=== PATIENT | female | born 1995 | race Caucasian/White ===

== ENCOUNTER 2017-04-03 10:01 | Emergency (ER) | payer OTHER ==
[2017-04-03 11:27] VITALS: BP 134/78
[2017-04-03] MEDS ORDERED: Tetan/Diph/Pertus SYR(Tdap)* 0.5 ML SYR(BOOSTRIX) use SYR IM ONE (12:20)
[2017-04-03] MEDS ORDERED: Acetaminophen TAB* 325 MG PO ONE (12:20)
--- NOTE | 2017-04-03 13:15 | RAD ---
Puncture wound in the left proximal region. Single lateral view of the pelvis demonstrates no evidence of radiopaque foreign body. IMPRESSION: No radiopaque foreign body is identified.
[2017-04-03] MEDS ORDERED: Amoxicillin/Clavulanate TAB* 875 MG PO ONE (15:18)
--- NOTE | 2017-04-03 15:18 | ED ---
Skin Complaint - HPI Summary HPI Summary: Pt here w/ Lt buttock lac - happened last night - fell back onto bottom and did not have pain but noticed a tear in her pants and quarter-sized area of blood on underwear/pants when going to the bathroom later that night. Looked at buttock this morning and noticed a laceration - cleaned with H202 and applied triple antibiotic ointment. Unsure of last tetanus vaccine? No pain unless she touches the area. No drainage, bleeding. - History of Current Complaint Chief Complaint: EDLacSutureRecheck Time Seen by Provider: 04/03/17 10:45 Stated Complaint: LAC ON BUTTOCKS Hx Last Menstrual Period: 08/10/16 Pain Intensity: 0 - Allergy/Home Medications Allergies/Adverse Reactions: Allergies Allergy/AdvReac Type Severity Reaction Status Date / Time No Known Allergies Allergy Verified 04/03/17 10:02 PMH/Surg Hx/FS Hx/Imm Hx Musculoskeletal History: Denies: Hx Rheumatoid Arthritis, Hx Osteoporosis - Surgical History Surgery Procedure, Year, and Place: foot surgery Infectious Disease History: No Infectious Disease History: Denies: Traveled Outside the [place] in Last 30 Days - Family History Known Family History: Positive: Cardiac Disease Negative: Hypertension - Social History Alcohol Use: None Hx Substance Use: No Substance Use Type: Reports: None Hx Tobacco Use: No Smoking Status (MU): Former Smoker Physical Exam Vital Signs On Initial Exam: Initial Vitals Temp Pulse Resp BP Pulse Ox 97.8 F 84 18 131/78 98 04/03/17 10:03 04/03/17 10:03 04/03/17 10:03 04/03/17 10:03 04/03/17 10:03 Procedures - Laceration/Wound Repair 1 Location: Other - Lt buttock Description: Stellate Anesthesia: Local, 2.0%, Lido, Epi Length, Depth and Shape: 3cm x 1cm Betadine Prep?: Yes Irrigated w/ Saline (ccs): 300 - hibaclens and sterile saline irrigation Laceration/Wound Explored: foreign body removed - 2 small pieces of black thread (pt was wearing black underwear at time of injury) Closure: Multilayer Suture Type: Nylon - 5-0, Chromic - 5-0 Number of Sutures: 9 - 2 deep absorbable, 7 simple interrupted non-absorbable Layer Closure?: Yes Sterile Dressing Applied?: No - triple anbx + gauze dressing Diagnostics - Vital Signs Vital Signs Temp Pulse Resp BP Pulse Ox 04/03/17 11:23 97.8 F 84 18 134/78 99 04/03/17 10:03 97.8 F 84 18 131/78 98 - Laboratory Lab Statement: Any lab studies that have been ordered have been reviewed, and results considered in the medical decision making process. Course/Dx - Diagnoses Provider Diagnoses: Laceration of left buttock Discharge - Discharge Plan Condition: Stable Disposition: HOME Prescriptions: Amoxicillin/Clavulanate TAB* [Augmentin TAB 875*] 875 mg PO BID #19 tab Patient Education Materials: Care For Your Stitches (ED), Laceration (ED) Forms: *Work Release Referrals: Desmond Munoz MD [Primary Care Provider] - Additional Instructions: Keep dressing clean, dry and intact for 48 hours - after this time, you may remove dressing - gently wash with soap and water - rinse well and pat dry with clean cloth then reapply triple antibiotic ointment and redress with clean gauze /bandaid. Avoid sitting, squatting to prevent rupturing sutures and wound. You may use ice and take acetaminophen for pain as needed. Complete antibiotics. Follow-up with PCP in 10 days for wound check and suture removal. *If you develop redness, swelling, purulent drainage, fever, chills, return to ED
== END 2017-04-03 15:35 | disposition home or self-care (01) ==
LOC: ED 10:01
DX: S31.821A Laceration without foreign body of left buttock, initial encounter (principal); W19.XXXA Unspecified fall, initial encounter; Y93.9 Activity, unspecified; Y92.9 Unspecified place or not applicable
CPT/HCPCS: 12002; 72170; 90715; 96372; 99282; A9270-GY

== ENCOUNTER 2018-05-25 23:46 | Inpatient (IN) | payer BC, MEDICAID ==
[2018-05-26] MEDS ORDERED: RHO D Immune Globulin (HUMAN)* 300 MCG = 1,500 I.U. INJ IM ONE (01:43)
[2018-05-26] MEDS ORDERED: Glycerin ADULT SUPP PR PRN (01:43)
[2018-05-26] MEDS ORDERED: Dibucaine 1% 28.35 GM TUBE PR PRN (01:43)
--- NOTE | 2018-05-26 01:53 | HP ---
General Information - Reason for Visit labor - General Information Maternal Age: 23 Grav: 1 Para: 0 SAB: 0 IEA: 0 Estimated Due Date: 05/28/18 Determined By: LMP Gestational Age in Weeks/Days: 39-57 Maternal Blood Type and Rh: A Negative - Results this Serology/RPR Result: Non-Reactive Rubella Result: Immune HBsAg Result: Negative HIV Result: Negative GBS Culture Result: Negative Past Medical History Delivery History: See Records Delivery History Comment: Primip Pertinent Past Medical History: See Records Past Medical History Comment: H/O Depression/anxiety. No current medications. Self d/c'd 03/2017 Environmental allergies Pertinent Past Surgical History: See Records Past Surgical History Comment: 2006 Thorn removal from left foot Pertinent Family History: Non-Contributory - Antepartal Records Antepartal Records: Reviewed, Complicated by: - Umbilical cysts diagnosed on sono. MFM consult: weekly NST/MARITZA after 32 weeks and Q 3-4 week growth sonos. LGSIL Pap 10/2017. Rh negative Review of Systems Constitutional: Uncomfortable CV Complaint: No Respiratory: Shortness of Breath: No Gastrointestinal: No Nausea/Vomiting, Normal Bowel Movement Genitourinary: Bleeding, Leaking Fluid, No Dysuria Musculoskeletal: Back Pain, Contractions, Pressure Neurological: No Headache, No Visual Changes Movement: Normal Exam Allergies/Adverse Reactions: Allergies ibuprofen Allergy (Verified 05/09/18 19:05) Nausea And Vomiting mometasone furoate [From Nasonex] Allergy (Verified 05/09/18 19:06) See Comment sinus swelling BP 119/72 HR 76 RR 22 SpO2 100% Lab Values - Entire Visit: Laboratory Tests 05/25/18 23:54 Vag Amniotic Fld Detect Negative - Measurements Height: 4 ft 11.5 in Weight: 134 lb Body Mass Index (BMI): 26.6 Pre- Weight: 115 lb - Exam Breast: Breast Exam Deferred CVA: No CVA Tenderness Extremities: No Edema Heart: Normal Rhythm/Heart Sounds HEENT: No Significant Findings Lungs: Clear Bilaterally Rectal: Rectal Exam Deferred Reflexes: DTR 2+ Thyroid: No Thyromegaly - Abdominal Exam Abdomen Exam: Non-Tender - Ultrasound/Biophysical Profile Ultrasound Status: Not Done Targeted Exam Findings See L&D Outpatient Visit Provider Note for Findings: N/A Estimated Weight: 6.5 lbs Cervical Exam: Complete Effacement: 100% Station: +3 Presenting Part: Vertex Membrane Status: SROM Amniotic Fluid Evaluation: Clear Sterile Speculum Exam: not done Bleeding/Discharge: Bloody Show EFM Findings - External Monitor Findings Baseline Heart Rate: 125 External Monitor Findings: Accelerations Present, Variability Moderate, Baseline Stable, Variable or Late Deceleration Pattern Present - variables with pushing External Monitor Findings Comment: Category II FHT with pushing. Moderate variability maintained Contractions: Regular, Strong, 45-90 Seconds, >90 Seconds Contraction Frequency: q 2-3 minutes Assessment/Plan - Assessment IUP at 39-5/7 in active labor, delivery imminent - Plan Plan: Admit - Anticipate Vaginal Delivery - Date/Time of Admission Date of Admission: 05/26/18 Time of Admission: 00:40
--- NOTE | 2018-05-26 02:01 | PROCNOTE ---
[facility] OB: Delivery Note - Delivery A Date of : 05/26/18 Time of : 01:21 Camas Sex: Male Weight at : 6 lb 6 oz Score 1 Minute: 8 Score 5 Minutes: 9 Gestational Age in Weeks and Days at Delivery: 39 Weeks and 5 Days Delivery Method: Spontaneous Vaginal Labor: Spontaneous Did Patient attempt ?: N/A, No Previous Amniotic Fluid: Clear Estimated Blood Loss: 250 Anesthesia/Analgesia: None Delivered By: Marcelle Ballesteros - Nursery Level of Nursery: Regular/Bedside - Perineum Perineal Injury: None/Intact Perineal Repair: None - Events Delivery Events of Note: None Apply - Additional Delivery Notes Additional Delivery Notes: Pt admitted in active labor after spontaneous rupture of membranes to clear fluid. Length of labor 2 hours, 27 min. Pushed x 18 min. liveborn male. Slow , controlled delivery of head. OA to TISHA. Loose nuchal cord x 1. somersaulted through after shoulders delivered with maternal push. vigorous with spontaneous cry. HR>110bpm. Delivered to maternal abdomen. Cord clamped x 2 and cut after pulsations ceased. Spontaneous delivery intact placenta. Membranes complete. Fundus firm to massage and remained firm. Unable to collect cord blood in presence of large umbilical cysts. Drawn from placental disc. Perineum intact. No repair needed as above. EBL 250mL. At time of note mother and in stable condition. Planning to both breast and bottle feed.
[2018-05-26] MEDS: Acetaminophen TAB* 325 MG PO PRN ×5 (02:31→21:22)
[2018-05-26] MEDS: Docusate CAP* 100 MG PO SCH ×3 (07:40→21:23)
[2018-05-26] MEDS: Witch Hazel PAD* JAR TOPICAL PRN ×2 (07:53→17:29)
[2018-05-26] MEDS ORDERED: Simethicone TAB* 80 MG TAB.CHEW PO SCH (08:30)
[2018-05-27 07:05] LABS: ABS Basophils 0 10^3/ul (0-0.2); ABS Eosinophils 0.1 10^3/ul (0-0.6); ABS Lymphocytes 2.2 10^3/ul (1.0-4.8); ABS Monocytes 0.6 10^3/ul (0-0.8); ABS Neutrophils 5.3 10^3/ul (1.5-7.7); ABS Nucleated RBC 0 10^3/ul; Eosinophil % 0.9 % (0-6); Hematocrit 33 % (35-47); Hemoglobin 11.3 g/dl (12.0-16.0); Mean Corpuscular HGB Conc 34 g/dl (31-36); Mean Corpuscular Hemoglobin 31 pg (27-31); Mean Corpuscular Volume 91 fL (80-97); Mean Platelet Volume 9.1 um3 (7.4-10.4); Nucleated Red Blood Cells % 0.1; Platelet Count 145 10^3/ul (150-450); Red Blood Count 3.68 10^6/ul (4.00-5.40); Red Cell Distribution Width 15 % (10.5-15); White Blood Count 8.2 10^3/ul (3.5-10.8)
[2018-05-27] MEDS: Docusate CAP* 100 MG PO SCH ×3 (07:57→21:02)
[2018-05-27] MEDS: Acetaminophen TAB* 325 MG PO PRN ×2 (07:57→12:45)
[2018-05-27] MEDS ORDERED: Ferrous Gluconate TAB* 324 MG TAB PO SCH (09:00)
[2018-05-27] MEDS: oxyCODONE/Acetamin 5/325 MG* TAB PO PRN ×2 (16:30→21:02)
[2018-05-28] MEDS: oxyCODONE/Acetamin 5/325 MG* TAB PO PRN ×2 (01:42→08:32)
[2018-05-28 08:27] VITALS: BP 107/68
[2018-05-28] MEDS: Docusate CAP* 100 MG PO SCH (08:53)
== END 2018-05-28 11:33 | disposition home or self-care (01) | DRG 560 ==
LOC: MCHOBOUT 23:46 → MCHOB 05-26 01:04
PROVIDERS: ADMIT Midwife; ATTEND Midwife
PROC: 10E0XZZ Delivery of Products of Conception, External Approach (ICD-10-PCS; principal; 2018-05-26)
PROC: 4A1HXCZ Monitoring of Products of Conception, Cardiac Rate, External Approach (ICD-10-PCS; 2018-05-26)
DX: O69.1XX0 Labor and delivery complicated by cord around neck, with compression, not applicable or unspecified (principal); O76 Abnormality in fetal heart rate and rhythm complicating labor and delivery; O69.89X0 Labor and delivery complicated by other cord complications, not applicable or unspecified; Z88.8 Allergy status to other drugs, medicaments and biological substances; Z88.6 Allergy status to analgesic agent; Z3A.39 39 weeks gestation of pregnancy; Z37.0 Single live birth; Z67.11 Type A blood, Rh negative
CPT/HCPCS: 36415; 84112; 85025; 85461; 86900; 86901; 88307; A9270-GY; J2790

== ENCOUNTER 2019-03-16 18:17 | Emergency (ER) | payer MEDICAID ==
--- OUTSIDE RECORDS SUMMARY | 2019-03-16 18:23 | XMS REPORT | Continuity of Care Document ---
:1995 External Reference #:[id number] Author Name Demond Cross M.D. 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 Onset: 07/01/2015 Allergic rhinitis due to animals Demond Cross M.D. Onset: 07/01/2015 Mild persistent asthma Demond Cross M.D. Onset: 07/01/2015 Spasm Demond Cross M.D. Onset: 02/25/2015 Body Mass Index Between 19-24 Adult Demond Cross M.D. Onset: 02/25/2015 Allergic rhinitis Demond Cross M.D. Onset: 02/25/2015 Allergic asthma without status asthmaticus Demond Cross M.D. Onset: 2014 Family History Date Family Member(s) Observation Comments General Seasonal Allergies General Asthma General Food Allergy General Heart Disease Mother Seasonal Allergies Mother Food Allergy Mother Heart Disease First Sister Asthma Second Sister Food Allergy Social History Type Date Description Comments Sex Unknown Marital Status Legal Status: Never Lives With Boyfriend Lives With Son Home Environment Lives in an older 1st floor apartment Home Environment [place] Environment Uses electric heating Home Environment Does not have an air conditioner Home Environment Stairs are present Home Environment There is no basement Home Environment Cotton Comforter Home Environment Down Comforter Home Environment Mattress is 7 years old Home Environment Mattress is not encased in an allergy proof case Home Environment Regular Mattress Home Environment Pillows are polyester Home Environment Does not use a dehumidifier Home Environment There are no draperies in the home Home Environment The home is puja Home Environment The floors are carpeted Home Environment The floors are tile Home Environment Water Source: Well Home Environment Does not use air business objects Home Environment Pillows are not encased in an allergy proof case Smoke-Free Home is smoke-free Smoke-Free Work is smoke-free Pets None 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 250mcg/Blist Aerosol Ipratropium [place] 2 squirts each 1bottle J45.30 Demond Cross, 03/06/2019 nostril in the M.D. 0.03% Solution morning and at night Fluticasone 1 squirt each 1units Demond Cross, 02/25/2015 Propionate nostril daily M.D. 50mcg/Act Suspension Proair HFA two inhalations Unknown every 4 hours as 108(90Base) mcg/Act needed for cough, Aerosol wheezing or chest tightness Madelaine 28 Once daily Alexander, 3-0.03mg MD Desmond Tablets History Medications Ipratropium [place] 2 times a day 15ml Desmond Munoz, - 0.06% 03/06/2019 Solution Advair Diskus Twice a day Desmond Munoz, - 03/06/2019 250-50mcg/Dose Aerosol Immunizations CPT Code Status Date Vaccine Lot # 53340 Given Unknown Influenza Vaccine 72729 Given Unknown Influenza Vaccine 56093 Given Unknown Influenza Vaccine Vital Signs Date Vital Result Comment 03/06/2019 9:14am Height 60 inches 5'0" Weight 121.00 lb Weight 54.886 kg Respiratory Rate 16 /min Heart Rate 66 /min O2 % BldC Oximetry 97 % BP Systolic 98 mmHg BP Diastolic 55 mmHg Asthma Control Test 23 BMI (Body Mass Index) 23.6 kg/m2 07/01/2015 11:57am Height 60 inches 5'0" Weight 113.00 lb Weight 51.257 kg Respiratory Rate 20 /min Heart Rate 81 /min O2 % BldC Oximetry 98 % BP Systolic 96 mmHg BP Diastolic 57 mmHg Asthma Control Test 21 BMI (Body Mass Index) 22.1 kg/m2 03/25/2015 11:22am Height 60 inches 5'0" Weight 111.00 lb Weight 50.350 kg Respiratory Rate 18 /min Heart Rate 83 /min O2 % BldC Oximetry 98 % BP Systolic 97 mmHg BP Diastolic 50 mmHg Asthma Control Test 19 BMI (Body Mass Index) 21.7 kg/m2 02/25/2015 10:26am Height 60 inches 5'0" Weight 115.00 lb Weight 52.164 kg Respiratory Rate 16 /min Heart Rate 76 /min O2 % BldC Oximetry 98 % BP Systolic 110 mmHg BP Diastolic 70 mmHg Asthma Control Test 20 BMI (Body Mass Index) 22.5 kg/m2 Procedures Date Code Description Status 03/06/2019 72560 Pulmonary Function Test Completed 02/25/2015 99811 Skin Test Scratch # Of Units ____ Completed 02/25/2015 62293 Pulmonary Function Test Completed Encounters Type Date Location Provider Dx Diagnosis Office Visit 03/06/2019 Saundra Cross M.D. J45.30 Mild persistent asthma, 9:00a uncomplicated J30.81 Allergic rhinitis due to animal (cat) (dog) hair and dander Office Visit 07/01/2015 11:40a Saundra Cross M.D. J45.30 Mild persistent asthma, uncomplicated J30.81 Allergic rhinitis due to animal (cat) (dog) hair and dander Z68.22 Body mass index (BMI) 22.0-22.9, adult Office Visit 03/25/2015 11:20a Saundra Cross M.D. V85.1 Body Mass Index Between 19-24 Adult 493.00 Asthma Extrinsic Unspecified 477.8 Rhinitis Allergic Due To Other Allergen 728.85 Spasm Muscle Office Visit 02/25/2015 10:00a Saundra Cross M.D. 493.00 Asthma Extrinsic Unspecified 477.8 Rhinitis Allergic Due To Other Allergen V85.1 Body Mass Index Between 19-24 Adult 728.85 Spasm Muscle Plan of Treatment 03/06/2019 - Demond Cross M.D.J45.30 Mild persistent asthma, uncomplicatedNew Medication:Flovent Diskus 250 mcg/Blist - 1 twice a dayIpratropium [place] 0.03 % - 2 squirts each nostril in the morning and at nightFollow up:6-8 weeks for the discussion if possible to keep it with me either ok for her to see Lucie when I amhereRecommendations:PFT,was with in normal without any reversibility( discussed with her ) TO continue with the Advair at this time 1 inhalation every 12 hour Proair inhalation to be used as needed,2 puff every 4-6 hour stop the Advair and start the Flovent 250 mcg, 1 inhalation every 12 hourJ30.81 Allergic rhinitis due to animal (cat) (dog) hair and danderRecommendations:ok to continue with the Fluticasone and Ipratropium nasal spray at this point we did discuss the results of her skin testing from the past she had questions about the immunotherapy and considering it
--- NOTE | 2019-03-16 18:24 | UC ---
Hand/Wrist HPI - HPI Summary HPI Summary: 24 yo female presents with right 5th digit pain. She tells me that she works with her hands a lot at work and thinks she may have jammed it or twisted her finger at some point today, but does not recall a specific instance. Tonight she developed some swelling to the radial aspect of the PIP of her right 5th digit with tenderness at the site. She has not taken anything OTC for her discomfort or applied ice. Denies numbness or tingling. - History Of Current Complaint Stated Complaint: FINGER INJURY Time Seen by Provider: 03/16/19 18:24 Hx Obtained From: Patient Hx Last Menstrual Period: 08/10/16 Onset/Duration: Sudden Onset Severity Initially: Mild Severity Currently: Mild Pain Intensity: 3 Pain Scale Used: 0-10 Numeric - Allergies/Home Medications Allergies/Adverse Reactions: Allergies Allergy/AdvReac Type Severity Reaction Status Date / Time ibuprofen Allergy Nausea And Verified 03/16/19 18:26 Vomiting mometasone furoate Allergy See Comment Verified 03/16/19 18:26 [From Nasonex] Home Medications: Home Medications Ethinyl Estradiol/Drospirenone [Madelaine 28 3-0.03 mg] 1 tab PO DAILY 03/16/19 [ History Confirmed 03/16/19] Fluticasone-Salmeterol 100-50* [Advair Diskus 100-50*] 03/16/19 [History Confirmed 03/16/19] PMH/Surg Hx/FS Hx/Imm Hx Respiratory History: Asthma Other History Of: Negative For: Anticoagulant Therapy - Surgical History Surgery Procedure, Year, and Place: foot surgery - Family History Known Family History: Positive: Cardiac Disease Negative: Hypertension - Social History Occupation: Employed Full-time Lives: With Family Alcohol Use: None Substance Use Type: None Smoking Status (MU): Never Smoked Tobacco - Immunization History Most Recent Influenza Vaccination: Declined Most Recent Pneumonia Vaccination: n/a Review of Systems All Other Systems Reviewed And Are Negative: Yes Constitutional: Positive: Negative Skin: Positive: Negative Respiratory: Positive: Negative Cardiovascular: Positive: Negative Neurovascular: Positive: Negative Musculoskeletal: Positive: Other: - Right 5th finger pain Neurological: Positive: Negative Psychological: Positive: Negative Physical Exam - Summary Physical Exam Summary: GENERAL: NAD. WDWN. No pain distress. SKIN: No rashes, sores, lesions, or open wounds. CHEST: No accessory muscle use. Breathing comfortably and in no distress. CV: Pulses intact radial and ulnar. Cap refill <2seconds MSK: RIGHT 5th digit: Slight edema at radial aspect of PIP with slight tenderness here. FROM with pain during flexion. 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 NEURO: Alert. Sensations intact hand and all fingers. PSYCH: Age appropriate behavior. Triage Information Reviewed: Yes Vital Signs: Vital Signs: Temp Pulse Resp BP Pulse Ox 98.7 F 87 16 113/77 100 03/16/19 18:23 03/16/19 18:23 03/16/19 18:23 03/16/19 18:23 03/16/19 18:23 Vital Signs Reviewed: Yes Hand/Wrist Course/Dx - Course Course Of Treatment: XR: wet read by myself is negative for fracture. Suspect sprain. Pt was placed in a finger splint and advised to rest and apply ice. May take tylenol for discomfort. F/u with Orthopedics if symptoms do not improve. - Differential Dx/Diagnosis Provider Diagnosis: Finger sprain Discharge - Sign-Out/Discharge Documenting (check all that apply): Patient Departure All imaging exams completed and their final reports reviewed: No - Discharge Plan Condition: Stable Disposition: HOME Patient Education Materials: Finger Sprain (ED) Referrals: Desmond Munoz MD [Primary Care Provider] - Jesse Spears MD [Medical Doctor] - If Needed Additional Instructions: If you develop a fever, shortness of breath, chest pain, new or worsening symptoms - please call your PCP or go to the ED immediately. 1) Your X-Ray appears normal today and I do not see any evidence of a fracture 2) I suspect you did jam or twist your finger at some point today to cause your pain and swelling at the joint. 3) Please use the finger splint as much as possible for the next 3-5 days to decrease pain and swelling 4) May take tylenol as directed for discomfort. Also apply ice intermittently throughout the day 5) If your symptoms do not improve within 4-5 days, please call Orthopedics at the number below to schedule an appointment for further evaluation. - Billing Disposition and Condition Condition: STABLE Disposition: Home
[2019-03-16 18:26] VITALS: BP 113/77
--- NOTE | 2019-03-17 07:26 | UC ---
- Progress Note Progress Note: Patient Name: IRAM BURRELL Medical Record#: [id number] Ordering Physician: Monroe ASHFORD Acct.#: [id number] : 1995 Age: 24 Sex: F [facility] Exam Date: 03/16/191837 ADM Status: DEP ER Order Information: FINGER RIGHT SMALL Accession Number: [id number] CPT: 75882 INDICATION: Right fifth finger pain. TECHNIQUE: 3 views of the right fifth finger were obtained. FINDINGS: The bones are normal alignment. No fracture is seen. There is a small sclerotic lesion in the distal fifth metacarpal nonspecific although suggestive of a benign bone island. Joint spaces appear maintained. IMPRESSION: NO EVIDENCE FOR FRACTURE. R0 Preliminary Imaging Read R0 <Electronically signed by Medardo Helms MD in OV> 03/17/19702 Dictated By: Medardo Helms MD Dictated Date/Time: 03/17/19702 Transcribed Date/Time: 03/17/19701 Copy to: CC:Maegan Briggs MD; Desmond Munoz MD PC; Monroe ASHFORD [employer] [facility] Urgent [facility] Emergency Department [address] [address] ph ([phone] ph ([phone]) ph ([phone]) This report is only to be considered final once signed by the Provider(s) as displayed in the "<Electronically Signed by >" field (s). Absence of a signature indicates the report is in a draft status and still needs to be finalized. In the event this document was created by someone other than the signing Provider, the individual initiating the document will be listed in the "Entered by:" or "Dictated by:" casas. 1 of 1 Course/Dx - Diagnoses Provider Diagnoses: Finger sprain Discharge - Sign-Out/Discharge Documenting (check all that apply): Post-Discharge Follow Up All imaging exams completed and their final reports reviewed: Yes - Discharge Plan Condition: Stable Disposition: HOME Patient Education Materials: Finger Sprain (ED) Referrals: Jesse Spears MD [Medical Doctor] - If Needed Desomnd Munoz MD [Primary Care Provider] - Additional Instructions: If you develop a fever, shortness of breath, chest pain, new or worsening symptoms - please call your PCP or go to the ED immediately. 1) Your X-Ray appears normal today and I do not see any evidence of a fracture 2) I suspect you did jam or twist your finger at some point today to cause your pain and swelling at the joint. 3) Please use the finger splint as much as possible for the next 3-5 days to decrease pain and swelling 4) May take tylenol as directed for discomfort. Also apply ice intermittently throughout the day 5) If your symptoms do not improve within 4-5 days, please call Orthopedics at the number below to schedule an appointment for further evaluation. - Billing Disposition and Condition Condition: STABLE Disposition: Home
--- NOTE | 2019-03-17 11:40 | UC ---
- Progress Note Progress Note: pt called requesting a return to work note there was no note taking pt out of work note written estella 03/17/19 Course/Dx - Diagnoses Provider Diagnoses: Finger sprain Discharge - Sign-Out/Discharge Documenting (check all that apply): Post-Discharge Follow Up All imaging exams completed and their final reports reviewed: Yes - Discharge Plan Condition: Stable Disposition: HOME Patient Education Materials: Finger Sprain (ED) Forms: *Gen. Provider Communication Referrals: Jesse Spears MD [Medical Doctor] - If Needed Desmond Munoz MD [Primary Care Provider] - Additional Instructions: If you develop a fever, shortness of breath, chest pain, new or worsening symptoms - please call your PCP or go to the ED immediately. 1) Your X-Ray appears normal today and I do not see any evidence of a fracture 2) I suspect you did jam or twist your finger at some point today to cause your pain and swelling at the joint. 3) Please use the finger splint as much as possible for the next 3-5 days to decrease pain and swelling 4) May take tylenol as directed for discomfort. Also apply ice intermittently throughout the day 5) If your symptoms do not improve within 4-5 days, please call Orthopedics at the number below to schedule an appointment for further evaluation. - Billing Disposition and Condition Condition: STABLE Disposition: Home
== END 2019-03-16 19:20 | disposition home or self-care (01) ==
LOC: UCEAST 18:17
DX: S63.616A Unspecified sprain of right little finger, initial encounter (principal); X58.XXXA Exposure to other specified factors, initial encounter; Y92.9 Unspecified place or not applicable
CPT/HCPCS: 73140; 99211; G0463

== ENCOUNTER 2019-06-01 10:53 | Day surgery (SDC) | payer MEDICAID ==
[~2019-06-01 10:53] MED LIST: Buffered Lidocaine 1% SYRIN* 1 ML/SYRINGE INTRADERM ONE; Dexamethasone TAB* 4 MG PO ONE; Famotidine IV* 10 MG/ML 2 ML (20 mg) IV ONE; Lactated Ringers 1000 ML Bag* 1,000 ML IV SCH; Ondansetron ODT TAB* 4 MG PO ONE
[2019-06-01] MEDS ORDERED: Sodium Bicarbonate 8.4% IV* 50 ML VIAL ONE ×2 (11:47)
[2019-06-01] MEDS ORDERED: Lidocaine 1% w EPI 1:200,000* SDV 30 ML VIAL ONE ×2 (11:48)
[2019-06-01] MEDS ORDERED: Bupivacaine 0.25% SDV PF* 10 ML VIAL INJ ONE ×2 (12:09)
[2019-06-01 13:17] VITALS: BP 122/88
--- NOTE | 2019-06-01 20:48 | OP ---
DATE OF OPERATION: 06/01/19 [facility] DATE OF : [birth year] SURGEON: Jesse Spears MD. SANITARY AIDE: MAKEDA Carpenter. ANESTHESIOLOGIST: None. ANESTHESIA: Local only with 1% lidocaine with epinephrine and bicarbonate. PRE-OP DIAGNOSIS: Right small finger snapping lateral band. POST-OP DIAGNOSIS: Right small finger snapping lateral band. OPERATIVE PROCEDURES: Repair of right small finger extensor tendon including repair of the triangular ligament. INDICATIONS: Ms. Sheehan has the snapping lateral band. We tried a period of 6 weeks of full-time PIP joint extension in splinting. That did not improve it. It snaps every time she bends the finger and it is audible and quite painful. I talked to her about treatment options. She wanted to proceed with surgery. ESTIMATED BLOOD LOSS: 2 mL. COMPLICATIONS: None. FINDINGS: See above and below. DESCRIPTION OF PROCEDURE: Ms. Sheehan was seen in the preoperative holding area. The correct site, side, and procedure were identified. We had a time- out and I anesthetized the operative area with local anesthetic. A short time later, we came back to the operating room, where the arm was prepped and draped in the usual fashion and a time-out was performed. The arm was exsanguinated with the Esmarch and the tourniquet was inflated to 200 mmHg. I made a curvilinear C-shaped incision over the dorsum of the right small finger and raised a radially based flap of the skin and subcutaneous tissue right off the extensor tendon. I then had her flex and extend the finger multiple times and the lateral band was noted to be snapping. I then performed a little bit of tenolysis and I released the transverse retinacular ligament. I then repaired the triangular ligament with 4-0 Ethibond suture. This was done with 4 [id number] 4-0 Ethibond sutures with the knots buried. I then had her flex and extend the finger. She could make a full fist. There was no more snapping. I did that multiple times and everything was looking good. Therefore, I irrigated out the wound and the skin was closed with 4-0 nylon suture. The wound was dressed with Xeroform, 4x4, 1-inch Damaso, and an Alumafoam clamp. A splint was applied holding the finger in extension. She was taken to the recovery room in stable condition. [id number]/[facility] #: [id number] SERAFIN
== END 2019-06-01 13:23 | disposition home or self-care (01) ==
LOC: OREAST 10:53
PROVIDERS: ATTEND Orthopaedic Surgery Hand Surgery
DX: M67.843 Other specified disorders of tendon, right hand (principal); F41.8 Other specified anxiety disorders; J45.909 Unspecified asthma, uncomplicated
CPT/HCPCS: J2001; J3490

== ENCOUNTER 2019-08-12 23:56 | Emergency (ER) | payer OTHER ==
--- OUTSIDE RECORDS SUMMARY | 2019-08-13 00:14 | XMS REPORT | Continuity of Care Document ---
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 Onset: 2014 Social History Type Date Description Comments Sex Unknown ETOH Use Rarely consumes alcohol Tobacco Use Start: Unknown Patient has never smoked Recreational Drug Use Denies Drug Use Allergies, Adverse Reactions, Alerts Active Allergies Reaction Severity Comments Date Nasonex itching 07/01/2015 Ibuprofen vomit 03/06/2019 Adhesives Hives 06/19/2019 Medications Active Medications SIG Qnty Indications Ordering Date Provider Montelukast Sodium 1 by mouth every 30tabs J45.30 An Gomes, 2018 day [employer] 10mg Tablets Flovent Diskus 1 twice a day 1units J45.30 Demond Cross, 03/06/2019 M.D. 250mcg/Blist Aerosol Fluticasone 1 squirt each 1units Demnod Cross, 02/25/2015 Propionate nostril daily M.D. 50mcg/Act Suspension Proair HFA two inhalations Unknown every 4 hours as 108(90Base) mcg/Act needed for cough, Aerosol wheezing or chest tightness Madelaine 28 Once daily Alexander, 3-0.03mg MD Desmond Tablets Medications Administered in Office Medication SIG Qnty Indications Ordering Provider Date Injection Allergy Injection 06/19/2019 Injection Injection Allergy Injection 06/12/2019 Injection Injection Allergy Injection 06/05/2019 Injection Injection Allergy Injection 05/29/2019 Injection Injection Allergy Injection 05/24/2019 Injection Injection Allergy Injection 05/15/2019 Injection Injection Allergy Injection 05/08/2019 Injection Injection Allergy Injection 05/01/2019 Injection Injection Allergy Injection 04/24/2019 Injection Immunizations CPT Code Status Date Vaccine Lot # 10866 Given Unknown Influenza Vaccine 97591 Given Unknown Influenza Vaccine 95925 Given Unknown Influenza Vaccine Vital Signs Date Vital Result Comment 06/19/2019 8:41am Height 60 inches 5'0" Weight 118.00 lb Weight 53.525 kg Respiratory Rate 18 /min Heart Rate 85 /min O2 % BldC Oximetry 98 % BP Systolic 89 mmHg BP Diastolic 61 mmHg Asthma Control Test 25 BMI (Body Mass Index) 23.0 kg/m2 04/17/2019 8:42am Height 60 inches 5'0" Weight 119.00 lb Weight 53.978 kg Respiratory Rate 16 /min Heart Rate 73 /min O2 % BldC Oximetry 98 % BP Systolic 86 mmHg BP Diastolic 79 mmHg Asthma Control Test 23 BMI (Body Mass Index) 23.2 kg/m2 Results Description No Information Available Procedures Date Code Description Status 06/19/2019 17026 Injection Completed 06/19/2019 38089 Pre PFT Completed 06/12/2019 03276 Injection Completed 06/05/2019 25207 Injection Completed 05/29/2019 35127 Injection Completed 05/24/2019 81207 Injection Completed 05/15/2019 42662 Injection Completed 05/08/2019 15802 Injection Completed 05/01/2019 11013 Injection Completed 04/24/2019 17297 Injection Completed 04/21/2019 00457 Extract 1-10 Completed 04/21/2019 61618 Extract 1-10 Completed 04/17/2019 42090 Pre PFT Completed 03/06/2019 66802 Pulmonary Function Test Completed Medical Devices Description No Information Available Encounters Type Date Location Provider Dx Diagnosis Office Visit 06/19/2019 S[place] Gomes, J30.1 Allergic rhinitis due 8:40a [employer] to pollen J30.89 Other allergic rhinitis J30.2 Other seasonal allergic rhinitis J30.81 Allergic rhinitis due to animal (cat) (dog) hair and dander J45.30 Mild persistent asthma, uncomplicated Office Visit 04/17/2019 8:40a Saundra Gomes J45.30 Mild persistent [facility] asthma, uncomplicated J30.81 Allergic rhinitis due to animal (cat) (dog) hair and dander Office Visit 03/06/2019 9:00a Saundra Cross M.D. J45.30 Mild persistent asthma, uncomplicated J30.81 Allergic rhinitis due to animal (cat) (dog) hair and dander Assessments Date Code Description Provider 06/19/2019 J30.1 Allergic rhinitis due to pollen An Uldrich, [employer] 06/19/2019 J30.1 Allergic rhinitis due to pollen Allergy Injection 06/19/2019 J30.89 Other allergic rhinitis An Uldrich, [employer] 06/19/2019 J30.89 Other allergic rhinitis Allergy Injection 06/19/2019 J30.2 Other seasonal allergic rhinitis An Uldrich, [employer] 06/19/2019 J30.2 Other seasonal allergic rhinitis Allergy Injection 06/19/2019 J30.81 Allergic rhinitis due to animal (cat) (dog) An Uldrich, [employer] hair and dander 06/19/2019 J30.81 Allergic rhinitis due to animal (cat) (dog) Allergy Injection hair and dander 06/19/2019 J45.30 Mild persistent asthma, uncomplicated An Uldrich, [employer] [facility] 06/12/2019 J30.1 Allergic rhinitis due to pollen Demond Cross M.D. 06/12/2019 J30.1 Allergic rhinitis due to pollen Allergy Injection 06/12/2019 J30.89 Other allergic rhinitis Demond Cross M.D. 06/12/2019 J30.89 Other allergic rhinitis Allergy Injection 06/12/2019 J30.2 Other seasonal allergic rhinitis Demond Cross M.D. 06/12/2019 J30.2 Other seasonal allergic rhinitis Allergy Injection 06/12/2019 J30.81 Allergic rhinitis due to animal (cat) (dog) Demond Cross M.D. hair and dander 06/12/2019 J30.81 Allergic rhinitis due to animal (cat) (dog) Allergy Injection hair and dander 06/05/2019 J30.1 Allergic rhinitis due to pollen Demond Cross M.D. 06/05/2019 J30.1 Allergic rhinitis due to pollen Allergy Injection 06/05/2019 J30.89 Other allergic rhinitis Demond Cross M.D. 06/05/2019 J30.89 Other allergic rhinitis Allergy Injection 06/05/2019 J30.2 Other seasonal allergic rhinitis Demond Cross M.D. 06/05/2019 J30.2 Other seasonal allergic rhinitis Allergy Injection 06/05/2019 J30.81 Allergic rhinitis due to animal (cat) (dog) Demond Cross M.D. hair and dander 06/05/2019 J30.81 Allergic rhinitis due to animal (cat) (dog) Allergy Injection hair and dander 05/29/2019 J30.1 Allergic rhinitis due to pollen Demond Cross M.D. 05/29/2019 J30.1 Allergic rhinitis due to pollen Allergy Injection 05/29/2019 J30.89 Other allergic rhinitis Demond Cross M.D. 05/29/2019 J30.89 Other allergic rhinitis Allergy Injection 05/29/2019 J30.2 Other seasonal allergic rhinitis Demond Cross M.D. 05/29/2019 J30.2 Other seasonal allergic rhinitis Allergy Injection 05/29/2019 J30.81 Allergic rhinitis due to animal (cat) (dog) Demond Cross M.D. hair and dander 05/29/2019 J30.81 Allergic rhinitis due to animal (cat) (dog) Allergy Injection hair and dander 05/24/2019 J30.1 Allergic rhinitis due to pollen Demond Cross M.D. 05/24/2019 J30.1 Allergic rhinitis due to pollen Allergy Injection 05/24/2019 J30.89 Other allergic rhinitis Demond Cross M.D. 05/24/2019 J30.89 Other allergic rhinitis Allergy Injection 05/24/2019 J30.2 Other seasonal allergic rhinitis Demond Cross M.D. 05/24/2019 J30.2 Other seasonal allergic rhinitis Allergy Injection 05/24/2019 J30.81 Allergic rhinitis due to animal (cat) (dog) Demond Cross M.D. hair and dander 05/24/2019 J30.81 Allergic rhinitis due to animal (cat) (dog) Allergy Injection hair and dander 05/15/2019 J30.1 Allergic rhinitis due to pollen Demond Cross M.D. 05/15/2019 J30.1 Allergic rhinitis due to pollen Allergy Injection 05/15/2019 J30.89 Other allergic rhinitis Demond Cross M.D. 05/15/2019 J30.89 Other allergic rhinitis Allergy Injection 05/15/2019 J30.2 Other seasonal allergic rhinitis Demond Cross M.D. 05/15/2019 J30.2 Other seasonal allergic rhinitis Allergy Injection 05/15/2019 J30.81 Allergic rhinitis due to animal (cat) (dog) Demond Cross M.D. hair and dander 05/15/2019 J30.81 Allergic rhinitis due to animal (cat) (dog) Allergy Injection hair and dander 05/08/2019 J30.1 Allergic rhinitis due to pollen Demond Cross M.D. 05/08/2019 J30.1 Allergic rhinitis due to pollen Allergy Injection 05/08/2019 J30.89 Other allergic rhinitis Demond Cross M.D. 05/08/2019 J30.89 Other allergic rhinitis Allergy Injection 05/08/2019 J30.2 Other seasonal allergic rhinitis Demond Cross M.D. 05/08/2019 J30.2 Other seasonal allergic rhinitis Allergy Injection 05/08/2019 J30.81 Allergic rhinitis due to animal (cat) (dog) Demond Cross M.D. hair and dander 05/08/2019 J30.81 Allergic rhinitis due to animal (cat) (dog) Allergy Injection hair and dander 05/01/2019 J30.1 Allergic rhinitis due to pollen Demond Cross M.D. 05/01/2019 J30.1 Allergic rhinitis due to pollen Allergy Injection 05/01/2019 J30.89 Other allergic rhinitis Demond Cross M.D. 05/01/2019 J30.89 Other allergic rhinitis Allergy Injection 05/01/2019 J30.2 Other seasonal allergic rhinitis Demond Cross M.D. 05/01/2019 J30.2 Other seasonal allergic rhinitis Allergy Injection 05/01/2019 J30.81 Allergic rhinitis due to animal (cat) (dog) Demond Cross M.D. hair and dander 05/01/2019 J30.81 Allergic rhinitis due to animal (cat) (dog) Allergy Injection hair and dander 04/24/2019 J30.1 Allergic rhinitis due to pollen Demond Cross M.D. 04/24/2019 J30.1 Allergic rhinitis due to pollen Demond Cross M.D. 04/24/2019 J30.89 Other allergic rhinitis Demond Cross M.D. 04/24/2019 J30.1 Allergic rhinitis due to pollen Allergy Injection 04/24/2019 J30.2 Other seasonal allergic rhinitis Demond Cross M.D. 04/24/2019 J30.89 Other allergic rhinitis Demond Cross M.D. 04/24/2019 J30.81 Allergic rhinitis due to animal (cat) (dog) Demond Cross M.D. hair and dander 04/24/2019 J30.89 Other allergic rhinitis Allergy Injection 04/24/2019 J30.2 Other seasonal allergic rhinitis Demond Cross M.D. 04/24/2019 J30.2 Other seasonal allergic rhinitis Allergy Injection 04/24/2019 J30.81 Allergic rhinitis due to animal (cat) (dog) Demond Cross M.D. hair and dander 04/24/2019 J30.81 Allergic rhinitis due to animal (cat) (dog) Allergy Injection hair and dander 04/21/2019 J30.1 Allergic rhinitis due to pollen Demond Cross M.D. 04/21/2019 J30.1 Allergic rhinitis due to pollen Lab 04/21/2019 J30.2 Other seasonal allergic rhinitis Demond Cross M.D. 04/21/2019 J30.2 Other seasonal allergic rhinitis Lab 04/21/2019 J30.81 Allergic rhinitis due to animal (cat) (dog) Lab hair and dander 04/21/2019 J30.89 Other allergic rhinitis Demond Cross M.D. 04/21/2019 J30.89 Other allergic rhinitis Lab 04/17/2019 J45.30 Mild persistent asthma, uncomplicated Demond Cross M.D. 04/17/2019 J45.30 Mild persistent asthma, uncomplicated HALLEY Freedman 04/17/2019 J30.81 Allergic rhinitis due to animal (cat) (dog) Demond Cross M.D. hair and dander 04/17/2019 J30.81 Allergic rhinitis due to animal (cat) (dog) NESTOR Freedman hair and dander 03/06/2019 J45.30 Mild persistent asthma, uncomplicated Demond Cross M.D. 03/06/2019 J30.81 Allergic rhinitis due to animal (cat) (dog) Demond Cross M.D. hair and dander Plan of Treatment Future Appointment(s):12/18/2019 8:40 am - NESTOR Freedman at [id number] - HALLEY Freedman-CJ30.1 Allergic rhinitis due to mzilsuR81.89 Other allergic dhxvavgfT95.2 Other seasonal allergic hmyvzqrnR45.81 Allergic rhinitis due to animal (cat) (dog) hair and smxyypV57.30 Mild persistent asthma , uncomplicatedFollow up:6 monthsRecommendations:Continue all medications as prescribed.Refrain from wearing perfumes/scented colognes while visitingour office. Continue the Singulair 1 daily Continue the fluticasone 2 sprays daily Continue the Flovent 2 puffs twice a day Continue the allergy shots Functional Status Description No Information Available Mental Status Description No Information Available Referrals Description No Information Available
--- OUTSIDE RECORDS SUMMARY | 2019-08-13 00:14 | XMS REPORT | Continuity of Care Document ---
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 Medicine Problems Description No Information Available Social History Type Date Description Comments Sex Unknown ETOH Use Denies alcohol use Tobacco Use Start: Unknown Patient has never smoked Smoking Status Reviewed: 07/18/19 Patient has never smoked Exercise Type/Frequency Exercises sporadically Allergies, Adverse Reactions, Alerts Active Allergies Reaction Severity Comments Date Nasonex 02/03/2017 Ibuprofen 03/29/2019 Adhesive 03/29/2019 Medications Active Medications SIG Qnty Indications Ordering Provider Date Proair HFA Inhale Two Puffs Unknown 108(90Base) By Mouth Every 4 mcg/Act Aerosol Hours Fluticasone Propionate [place] One [place] Unknown In Each Nostril 50mcg/Act Suspension Twice A Day Advair Diskus Inhale One puff Unknown 250-50mcg/Dose By Mouth Twice A Aerosol Day Nitrofurantoin Unknown Macrocrystal 25mg Capsules Control Unknown History Medications Tramadol HCL 1-2 tablets by 30tabs Jesse Spears MD 06/01/2019 - 50mg mouth every 6 07/17/2019 Tablets hours as needed pain Immunizations Description No Information Available Vital Signs Date Vital Result Comment 07/18/2019 8:05am Height 60.5 inches 5'0.50" Weight 119.00 lb Heart Rate 78 /min Respiratory Rate 12 /min Body Temperature 96.5 F Pain Level 0 BMI (Body Mass Index) 22.9 kg/m2 06/14/2019 9:15am Height 60.5 inches 5'0.50" Heart Rate 60 /min BP Systolic 118 mmHg BP Diastolic 62 mmHg Respiratory Rate 16 /min Body Temperature 98.3 F Pain Level 0 Results Description No Information Available Procedures Date Code Description Status 06/01/2019 67391 Repair,Extensor Tendon,Finger Prim Or Sec W/O Free Graft Completed Each Ten 06/01/2019 16333 Repair,Extensor Tendon,Finger Prim Or Sec W/O Free Graft Completed Each Ten Medical Devices Description No Information Available Encounters Type Date Location Provider Dx Diagnosis [facility] S66.306D Unsp inj extn 1:15p [place] [facility] [place] [facility] [place] fngr at [facility], subs Office Visit 05/03/2019 [place] Oscar Spears S66.306D Unsp inj extn 8:00a at Sa[facility] gutierrez/fasc/tend r lit fngr at [facility], subs [facility] S[facility] Un[facility] extn 8:00a at [facility] gutierrez/fasc/tend r lit fngr at [facility], init Assessments Date Code Description Provider 07/18/2019 S66.306D Unspecified injury of extensor muscle, fascia Jesse Spears MD and tendon of right little finger at wrist and hand level, subsequent encounter 06/14/2019 S66.306D Unspecified injury of extensor muscle, fascia Jesse Spears MD and tendon of right little finger at wrist and hand level, subsequent encounter 06/07/2019 S66.306D Unspecified injury of extensor muscle, fascia Jesse Spears MD and tendon of right little finger at wrist and hand level, subsequent encounter 06/07/2019 S66.306D Unspecified injury of extensor muscle, fascia Jesse Spears MD and tendon of right little finger at wrist and hand level, subsequent encounter 06/01/2019 S66.306D Unspecified injury of extensor muscle, fascia MAKEDA Carpenter and tendon of right little finger at wrist and hand level, subsequent encounter 06/01/2019 S66.306D Unspecified injury of extensor muscle, fascia Jesse Spears MD and tendon of right little finger at wrist and hand level, subsequent encounter 05/30/2019 S66.306D Unspecified injury of extensor muscle, fascia Jesse Spears MD and tendon of right little finger at wrist and hand level, subsequent encounter 05/03/2019 S66.306D Unspecified injury of extensor muscle, fascia Jesse Spears MD and tendon of right little finger at wrist and hand level, subsequent encounter 03/29/2019 S66.306A Unspecified injury of extensor muscle, fascia Jesse Spears MD and tendon of Plan of Treatment 07/18/2019 - Jesse Spears MDS66.306D Unspecified injury of extensor muscle, fascia and tendon of right little finger at wrist and hand level, subsequent encounterFollow up:Follow up: 3 months Functional Status Description No Information Available Mental Status Description No Information Available Referrals Description No Information Available
[2019-08-13] MEDS ORDERED: Ketorolac INJ* 30 MG/ML 1 ML VIAL IM ONE (03:12)
[2019-08-13] MEDS ORDERED: Clindamycin CAP* 150 MG PO ONE (03:13)
--- NOTE | 2019-08-13 03:14 | ED ---
Throat Pain/Nasal Congestion - HPI Summary HPI Summary: This patient is a 24 year old F presenting to [facility] with a chief complaint of tooth pain radiating to upper jaw since 07/31/19. Pt reports that her pain is very severe now, and she cannot see dentist until 08/22/19. Per triage, the patient rates the pain 10/10 in severity. Patient denies fever, nausea, vomiting. Pt is allergic to nasonex, and ibuprofen. Last period started 07/25-07/29/19. Pt does not smoke, drink, or do drugs. Pt has surgeries June 01. - History of Current Complaint Chief Complaint: EDDentalPain Time Seen by Provider: 08/13/19 02:28 Hx Obtained From: Patient Onset/Duration: Gradual Onset, Still Present Severity: Severe Associated Signs And Symptoms: Positive: Negative Cough: None - Allergies/Home Medications Allergies/Adverse Reactions: Allergies Allergy/AdvReac Type Severity Reaction Status Date / Time ibuprofen Allergy Nausea And Verified 03/16/19 18:26 Vomiting mometasone furoate Allergy See Comment Verified 03/16/19 18:26 [From Nasonex] Home Medications: Home Medications Montelukast Sodium 1 tab PO DAILY 08/13/19 [History Confirmed 08/13/19] PMH/Surg Hx/FS Hx/Imm Hx Endocrine/Hematology History: Denies: Hx Anticoagulant Therapy, Hx Blood Disorders Musculoskeletal History: Denies: Hx Rheumatoid Arthritis, Hx Osteoporosis Psychiatric History: Reports: Hx Anxiety, Hx Depression - Surgical History Surgery Procedure, Year, and Place: foot surgery - Immunization History Date of Tetanus Vaccine: utd Date of Influenza Vaccine: fall 2017 Infectious Disease History: No Infectious Disease History: Denies: Traveled Outside the [place] in Last 30 Days - Family History Known Family History: Positive: Cardiac Disease Negative: Hypertension - Social History Occupation: Employed Full-time Alcohol Use: Rare Alcohol Amount: 3 times a year Hx Substance Use: No Substance Use Type: Reports: None Hx Tobacco Use: No Smoking Status (MU): Never Smoked Tobacco - Additional Comments History Additional Comments: Home Medications Medication Instructions Recorded Confirmed Type Ethinyl Estradiol/Drospirenone 1 tab PO DAILY 03/16/19 08/13/19 History [Madelaine 28 3-0.03 mg] Montelukast Sodium 1 tab PO DAILY 08/13/19 08/13/19 History Review of Systems Negative: Fever Positive: Dental Pain Negative: Vomiting, Nausea All Other Systems Reviewed And Are Negative: Yes Physical Exam - Summary Physical Exam Summary: General: Well-developed, Well-nourished female. No acute distress. HEENT: Posterior inferior right jaw, second to last tooth missing and one in front broken. Eyes: Conjuctiva normal, PERRL. Ears: TMs within normal limits. Nares: (-) discharge, (-) erythema. Oropharynx: Clear, mucous membranes moist, (-) exudates. Neck: Soft, FROM, (-) lymphadenopathy, (-) thyromegaly, (-) JVD. Cardiovascular: Normal sinus rhythm, (-) murmur. Lungs: Clear to auscultation bilaterally (-) wheezes, (-) rales, (-) rhonchi. Abdomen: Soft, non-tender, non-distended, (-) organomegaly, normal bowel sounds. Back: (-) CVA tenderness Extremities: No edema. Skin: Warm, dry, (-) rash. Neuro: Alert and oriented x3, no focal deficits. Psychiatric: Mood normal, affect normal. Triage Information Reviewed: Yes Vital Signs On Initial Exam: Initial Vitals Temp Pulse Resp BP Pulse Ox 99.3 F 82 18 144/93 100 08/12/19 23:58 08/12/19 23:58 08/12/19 23:58 08/12/19 23:58 08/12/19 23:58 Vital Signs Reviewed: Yes Procedures - Sedation Patient Received Moderate/Deep Sedation with Procedure: No Diagnostics - Vital Signs Vital Signs Temp Pulse Resp BP Pulse Ox 08/12/19 23:58 99.3 F 82 18 144/93 100 - Laboratory Lab Statement: Any lab studies that have been ordered have been reviewed, and results considered in the medical decision making process. EENT Course/Dx - Course Course Of Treatment: 24 year old female present with 2 week hx of pain in her bottom posterior right jaw, she states tooth has hole in it. The pain has become worse, and she feels no relief with Tylenol. Dentist appointment . Pt not ill appearing, no obvious abscess on exam, started on clindamycin, and anti-inflammatories, follow up with dentist TOMÁS. - Diagnoses Provider Diagnoses: Pain, dental Discharge ED - Sign-Out/Discharge Documenting (check all that apply): Patient Departure - Discharge - Discharge Plan Condition: Stable Disposition: HOME Prescriptions: Clindamycin HCl 300 mg PO QID #40 capsule Ketorolac TAB * [Toradol TAB *] 10 mg PO Q6H #20 tab Patient Education Materials: Toothache (ED) Referrals: Desmond Munoz MD [Primary Care Provider] - Additional Instructions: Apply ice to the area as needed. Followup with dentist TOMÁS. - Billing Disposition and Condition Condition: STABLE Disposition: Home - Attestation Statements Document Initiated by Em: Yes Documenting Scribe: Cindy Bar Provider For Whom Em is Documenting (Include Credential): Dr. Maria L Song MD Scribe Attestation: Cindy Braden scribed for Dr. Maria L Song MD on 08/13/19 at 0608. Scribe Documentation Reviewed: Yes Provider Attestation: The documentation as recorded by the Cindy wakefield accurately reflects the service I personally performed and the decisions made by , Dr. Maria L Song MD Status of Scribe Document: Viewed
[2019-08-13 03:42] VITALS: BP 113/72
[2019-08-13] MEDS ORDERED: Eth Estradiol/Drospirenone(NF) TAB PO SCH (09:00)
[2019-08-13] MEDS ORDERED: Montelukast Sodium TAB* 10 MG PO SCH (09:00)
== END 2019-08-13 03:41 | disposition home or self-care (01) ==
LOC: ED 23:56
DX: K08.89 Other specified disorders of teeth and supporting structures (principal); F41.9 Anxiety disorder, unspecified; F32.9 Major depressive disorder, single episode, unspecified
CPT/HCPCS: 96372; 99282; A9270-GY; J1885